=== PATIENT | female | born 1985 | race Asian ===

== ENCOUNTER 2016-09-26 10:25 | Outpatient (CLI) | payer BC, OTHER | END 2016-09-26 22:04 | disposition home or self-care (01) | LOC: US 10:25 | DX: R10.11 Right upper quadrant pain (principal) ==

== ENCOUNTER 2016-11-05 09:59 | Day surgery (SDC) | payer BC, OTHER ==
[~2016-11-05] VITALS: Ht 167.6 cm; Wt 68.0 kg
[2016-11-05 10:24] LABS: PLATELET COUNT 359 K/uL (152-353)
[2016-11-05 10:35] LABS: PARTIAL THROMBOPLASTIN TIME 25.4 SECONDS (24.5-33.6)
[2016-11-05 10:41] LABS: SODIUM 137 mmol/L (136-145)
== END 2016-11-05 14:30 | disposition home or self-care (01) ==
LOC: OR 09:59
PROVIDERS: Student in an Organized Health Care Education/Training Program
PROC: 0FT44ZZ Resection of Gallbladder, Percutaneous Endoscopic Approach (ICD-10-PCS; principal; 2016-11-05)
DX: K81.1 Chronic cholecystitis (principal)
CPT/HCPCS: 36415; 80053; 84702; 85027; 85610; 85730; J0330; J0690; J1170; J2250; J2405; J2704; J2710; J3010; J3490

== ENCOUNTER 2017-05-27 10:08 | Observation (INO) | payer BC, OTHER ==
[~2017-05-27] VITALS: Ht 162.6 cm; Wt 103.2 kg
[2017-05-27 10:35] VITALS: BP 154/87; TEMP 97.8
[2017-05-27 11:02] LABS: PLATELET COUNT 364 K/uL (152-353)
[2017-05-27] MEDS ORDERED: LISI20TA11 PO (11:11)
[2017-05-27] MEDS ORDERED: AMLO2.5T PO (11:11)
[2017-05-27] MEDS ORDERED: HYDROCHLOROT12.5 M1 PO (11:11)
[2017-05-27] MEDS ORDERED: SERT50TA PO (11:12)
[2017-05-27 11:32] LABS: SODIUM 135 mmol/L (136-145)
[2017-05-27 12:46] VITALS: BP 106/88; TEMP 98.4; Ht 162.6 cm; Wt 103.2 kg
[2017-05-27 16:00] VITALS: BP 129/84; TEMP 98
[2017-05-27 20:00] VITALS: BP 131/86; TEMP 98.2
[2017-05-27 20:25] LABS: PARTIAL THROMBOPLASTIN TIME 24.7 SECONDS (24.5-33.6)
[2017-05-28] VITALS: BP 107/57; TEMP 98.2
[2017-05-28 03:31] LABS: PLATELET COUNT 351 K/uL (152-353)
[2017-05-28 03:56] LABS: POTASSIUM 3.9 mmol/L (3.6-5.2); SODIUM 137 mmol/L (136-145)
[2017-05-28 04:00] VITALS: BP 113/66; TEMP 98
[2017-05-28 08:00] VITALS: BP 120/73; TEMP 98.3
[2017-05-28 12:00] VITALS: BP 132/87; TEMP 98.2
--- NOTE | 2017-05-28 12:30 | NUR ---
IV D/C'd. NO REDNESS OR EDEMA OBSERVED. DISCHARGE INSTRUCTION SIGNED AND GIVEN. Pt. EXIT OUT OF FRONT ENTRANCE AMBULATING.
== END 2017-05-28 12:30 | disposition home or self-care (01) ==
LOC: ED 10:08 → MED/SURG 11:40
PROVIDERS: ADMIT Family Medicine
DX: R07.89 Other chest pain (principal)
CPT/HCPCS: 36415; 80053; 82150; 82550; 83690; 83735; 84484; 85027; 85610; 85730; 86141; 93005; 96360; 96365; 96366; 96372; 96375; 99220; 99284; G0378; J1650; J2405

== ENCOUNTER 2017-10-28 19:53 | Emergency (ER) | payer OTHER ==
[~2017-10-28] VITALS: Ht 162.6 cm; Wt 103.4 kg
[~2017-10-28 19:53] MED LIST: AMLO2.5T PO; HYDROCHLOROT12.5 M1 PO; LISI20TA11 PO; SERT50TA PO
[2017-10-28 19:58] VITALS: TEMP 97.9
[2017-10-28 20:19] VITALS: BP 159/95
== END 2017-10-28 20:23 | disposition home or self-care (01) ==
LOC: ED 19:53
DX: L73.2 Hidradenitis suppurativa (principal)
CPT/HCPCS: 99282

== ENCOUNTER 2018-03-11 16:13 | Outpatient (CLI) | payer OTHER | END 2018-03-11 22:49 | disposition home or self-care (01) | LOC: RESP 16:13 | DX: G56.01 Carpal tunnel syndrome, right upper limb (principal) | CPT/HCPCS: 95885; 95909 ==

== ENCOUNTER 2018-09-10 09:55 | Emergency (ER) | payer OTHER ==
[~2018-09-10] VITALS: Ht 162.6 cm; Wt 107.5 kg
[2018-09-10 10:07] VITALS: BP 148/102; TEMP 98.6
[2018-09-10 11:35] LABS: PLATELET COUNT 305 K/uL (152-353)
[2018-09-10 11:48] LABS: POTASSIUM 3.8 mmol/L (3.6-5.2)
== END 2018-09-10 13:55 | disposition home or self-care (01) ==
LOC: ED 09:55
PROVIDERS: Family Medicine
PROC: 0H9T0ZZ Drainage of Right Breast, Open Approach (ICD-10-PCS; principal; 2018-09-10)
DX: N61.1 Abscess of the breast and nipple (principal)
CPT/HCPCS: 36415; 80053; 81000; 85027; 87070; 87205; 99283; J1885; J7040

== ENCOUNTER 2020-07-14 11:27 | Emergency (ER) | payer BC ==
[~2020-07-14] VITALS: Ht 162.6 cm; Wt 90.7 kg
[2020-07-14 11:30] VITALS: BP 164/111; TEMP 98.9
[2020-07-14 12:08] LABS: PLATELET COUNT 261 K/uL (152-353)
[2020-07-14 12:26] LABS: POTASSIUM 3.9 mmol/L (3.6-5.2); SODIUM 137 mmol/L (136-145)
== END 2020-07-14 16:31 | disposition home or self-care (01) ==
LOC: ED 11:27
PROVIDERS: Family Medicine
DX: F43.21 Adjustment disorder with depressed mood (principal); Z11.59 Encounter for screening for other viral diseases; Z04.6 Encounter for general psychiatric examination, requested by authority
CPT/HCPCS: 80053; 80307; 80320; 80329; 81000; 81025; 85027; 87635; 93005; 99285; U0003